=== PATIENT | female | born 1965 | race Caucasian/White ===

== ENCOUNTER → 2021-07-03 | Outpatient (CLI) | payer BC, OTHER ==
[~2021-07-03] MED LIST: FLUO20CA22 PO; PHEN30CA21 PO; QUET1TAB17 PO; TOPI25TA10 PO
== END ==
LOC: M LABSMTC 09:28
PROVIDERS: ATTEND Anesthesiology
DX: Z01.812 Encounter for preprocedural laboratory examination (principal); Z20.822 Contact with and (suspected) exposure to COVID-19

== ENCOUNTER 2021-07-08 07:58 | Day surgery (SDC) | payer BC, OTHER ==
[~2021-07-08] VITALS: Ht 160 cm; Wt 103.9 kg
[~2021-07-08 07:58] MED LIST changes: +NS 1,000 ML IV ONE
[2021-07-08] MEDS ORDERED: LIDOCAINE 2% 100MG/5ML SDV (FOR ANES.) As Ordered ONE (08:12)
[2021-07-08] MEDS ORDERED: propofoL 200 MG/20 ML VIAL As Ordered ONE (08:12)
[2021-07-08 09:58] VITALS: BP 128/79
== END 2021-07-08 09:59 | disposition home or self-care (01) ==
LOC: M OPP 07:58
PROVIDERS: ATTEND Internal Medicine Gastroenterology
DX: Z12.11 Encounter for screening for malignant neoplasm of colon (principal); Z79.899 Other long term (current) drug therapy; Z88.0 Allergy status to penicillin; Z88.5 Allergy status to narcotic agent

== ENCOUNTER → 2024-12-19 | Outpatient (CLI) | payer BC ==
[~2024-12-19] MED LIST changes: +FLUO-365 PO; -FLUO20CA22 PO; +FLUO40CA PO; -NS 1,000 ML IV ONE; +TOPI-256 PO; -TOPI25TA10 PO
== END ==
LOC: M ONCR 15:49
PROVIDERS: ATTEND General Practice
DX: C51.8 Malignant neoplasm of overlapping sites of vulva (principal); Z79.899 Other long term (current) drug therapy; Z88.0 Allergy status to penicillin; Z88.1 Allergy status to other antibiotic agents; Z88.5 Allergy status to narcotic agent; Z90.49 Acquired absence of other specified parts of digestive tract; Z98.84 Bariatric surgery status

== ENCOUNTER → 2024-12-20 | Outpatient (CLI) | payer BC ==
[2024-12-20 17:37] LABS: BASO # 0.1 10^3/uL (0.0-0.2); BASO % 1.1 % (0.0-1.0); EOS # 0.3 10^3/uL (0.0-0.5); EOS % 3.5 % (0.0-3.0); LYMPH # 3.0 10^3/uL (1.5-5.0); LYMPH % 30.7 % (24.0-44.0); MONO # 0.8 10^3/uL (0.0-0.8); MONO % 8.2 % (2.0-8.0); NEUTROPHILS # 5.5 10^3/uL (1.5-8.5); NEUTROPHILS % 56.2 % (36.0-66.0); PLATELET COUNT, AUTOMATED 434 10^3/uL (150-450)
[2024-12-20 18:02] LABS: ALT/SGPT 16.0 U/L (7.0-40); AST/SGOT 24.0 U/L (<34); CALCIUM LEVEL 9.6 MG/DL (8.5-10.1); CARBON DIOXIDE LEVEL 28.0 MMOL/L (20-31); CHLORIDE LEVEL 101.0 MMOL/L (98-107); CREATININE FOR GFR 0.83 MG/DL (0.55-1.30); GLOMERULAR FILTRATION RATE 81.2 (>51); POTASSIUM SERUM 4.4 MMOL/L (3.5-5.1); SODIUM LEVEL 138.0 MMOL/L (136-145)
[2024-12-20 18:45] LABS: IRON (FE) 29.0 UG/DL (50-170); PERCENT SATURATION 9.7 % (13.2-45.0)
[2024-12-20 18:47] LABS: VITAMIN B12 LEVEL 410.0 PG/ML (211-911)
== END ==
LOC: M LAB 16:40
PROVIDERS: ATTEND Internal Medicine Medical Oncology
DX: C51.9 Malignant neoplasm of vulva, unspecified (principal)

== ENCOUNTER 2024-12-27 13:47 | Outpatient (RCR) | payer BC | END 2024-12-28 | LOC: M ONCR 13:47 | PROVIDERS: ATTEND General Practice | DX: Z51.0 Encounter for antineoplastic radiation therapy (principal); C51.8 Malignant neoplasm of overlapping sites of vulva ==

== ENCOUNTER → 2025-01-07 | Outpatient (CLI) | payer BC | LOC: M PLARAD 11:18 | PROVIDERS: ATTEND General Practice | DX: C51.8 Malignant neoplasm of overlapping sites of vulva (principal) | CPT/HCPCS: 78815; A9552 ==

== ENCOUNTER 2025-01-23 13:53 | Outpatient (RCR) | payer BC ==
[~2025-01-23 13:53] MED LIST changes: +FERR325T3 PO; +ONDA-84 PO
[2025-01-30] MEDS ORDERED: LIDO30CR18 TOP (12:24)
== END 2025-01-27 ==
LOC: M ONCR 13:53
PROVIDERS: ATTEND General Practice
DX: Z51.0 Encounter for antineoplastic radiation therapy (principal); C51.8 Malignant neoplasm of overlapping sites of vulva

== ENCOUNTER → 2025-01-31 | Outpatient (CLI) | payer BC ==
[~2025-01-31] VITALS: Ht 160 cm; Wt 103.6 kg
[~2025-01-31] MED LIST changes: +LIDO30CR18 TOP
[2025-01-31 08:45] VITALS: TEMP 98.2
[2025-01-31] MEDS: NS (Normal Saline) 0.9% 1,000 ML IV SCH (09:16)
[2025-01-31] MEDS: ceFAZolin SODIUM 2 GM in DEXTROSE 5% (D5W) ADV/MINI-BAG 50 ML IV ONE (09:16)
[2025-01-31] MEDS: MIDAZOLAM INJ 2 MG/2 ML VIAL IV PRN (10:32)
[2025-01-31] MEDS: LIDOCAINE 1% MDV 20 ML VIAL SC SCH (10:33)
[2025-01-31 11:16] VITALS: BP 176/81; O2SAT 97
== END ==
LOC: M IRPRO 08:24
PROVIDERS: ATTEND Internal Medicine Medical Oncology
DX: C51.9 Malignant neoplasm of vulva, unspecified (principal)
CPT/HCPCS: 36561; 77001; 99152; J0688; J1642; J2250; J3010

== ENCOUNTER 2025-02-26 14:52 | Outpatient (RCR) | payer BC | END 2025-02-27 | LOC: M ONCR 14:52 | PROVIDERS: ATTEND General Practice | DX: Z51.0 Encounter for antineoplastic radiation therapy (principal); C51.8 Malignant neoplasm of overlapping sites of vulva ==